=== PATIENT | female | born 1950 | race Caucasian/White ===

== ENCOUNTER → 2023-12-09 10:53 | Outpatient (REF) | payer MEDICARE, OTHER, SELFPAY | LOC: RAD 10:53 | PROVIDERS: ATTENDING PHYSICIAN Surgery Vascular Surgery; FAMILY PHYSICIAN Family Medicine | DX: I77.0 Arteriovenous fistula, acquired (principal) | CPT/HCPCS: 93990 ==

== ENCOUNTER 2023-12-14 13:39 | Emergency (ER) | payer MEDICARE, OTHER, SELFPAY ==
[2023-12-14 13:54] VITALS: BP 168/92
[2023-12-14 15:03] VITALS: BMI 31.3
--- NOTE | 2023-12-14 15:14 | ED.GENMED ---
History of Present Illness
General
Chief Complaint: Abdominal Pain
Source: patient and spouse
Exam Limitations: none
Time Seen by Provider: 12/14/23 14:38
Nursing documentation reviewed up to this point in time: agreed with
Travel History
Have you had any contact with someone who has COVID-19?: No
Do you have any symptoms of coronavirus? Fever > 100 degrees, chills, cough, shortness of breath, sore throat, loss of taste or smell, muscle aches, or headache?: No
History of Present Illness
History of Present Illness:
73-year-old female with past medical history of hypertension hyperlipidemia pacemaker, diabetes, CKD currently on dialysis end-stage renal disease, stroke presenting to the emergency department today with concerns of right-sided abdominal pain that
was abrupt in onset roughly 3 hours prior to arrival with associated nausea vomiting no diarrhea. Denies any known sick contacts.
Past History
Past History
ED Past Medical History: CAD, Hypercholesterolemia, IDDM and Other (Sciatica)
ED Past Surgical History: Cardiac and Orthopedic (Left hip fracture repair November 2019)
Social History
Tobacco: Non-smoker
Alcohol: None
Drug: None
Personal:
Living: with family
Employment: Retired
Family History
Family History: Other (Noncontributory)
Review of Systems
Review of Systems
Allergies reviewed?: Yes
All Other Systems: ROS reviewed and negative except as documented in HPI and ROS
Phy Exam
Physical Exam
Physical Exam:
GENERAL: Alert , in no apparent distress
EYE: pupils equal and reactive
NECK: Supple, no significant adenopathy.
ENT: o/p clr, mmm.
CARDIAC: Regular rate and rhythm .
LUNGS: Clear breath sounds bilaterally, no acute respiratory distress, no wheezes/rales/rhonchi
ABDOMEN: Diffuse mild abdominal discomfort
NEUROLOGICAL: Alert and oriented, no focal neuro deficits
SKIN: Warm and dry, skin intact.
MUSCULOSKELETAL: No edema, well perfused.
PSYCH: Normal and appropriate interaction.
Course
Orders/Labs/Results
Orders:
Orders
12/14/23 15:12
CT Abd/Pel (IV only)-DH only Urgent
Comment:
Reason For Exam: abd pain
HYDROmorphone [Dilaudid] 0.5 mg IV NOW STA
Ondansetron Injectable [Zofran] 4 mg IV NOW STA
12/14/23 15:13
Electrocardiogram (*1) Stat
Reason for Study: Abdominal Pain
EKG- Treatment ONCE
12/14/23 15:33
Complete Blood Count/With Diff Urgent
Comprehensive Metabolic Panel Urgent
Lactic Acid Urgent
Lipase Urgent
Urinalysis Reflex To Culture Urgent
Date Specimen was Collected: 12/14/23
Time Specimen was Collected: 15:27
Urine Microscopic Reflex Cult Urgent
Urine Culture Urgent
CHARLINE Source: U
Specimen Description:
Date Specimen was Collected: 12/14/23
Time Specimen was Collected: 15:27
12/14/23 17:09
Ondansetron Injectable [Zofran] 4 mg .ROUTE .STK-MED ONE
12/14/23 17:11
Ondansetron Injectable [Zofran] 4 mg IV NOW STA
12/14/23 18:26
HYDROmorphone [Dilaudid] 0.5 mg IV NOW STA
Abnormal Lab Results
12/14/23
15:33
RBC 3.85 L 10^6/uL
(4.20-5.40)
MCV 99.2 H fL
(81.0-99.0)
MCH 33.2 H pg
(27.0-31.0)
RDW 15.0 H %
(11.5-14.5)
MPV 10.7 H fL
(7.4-10.4)
Absolute Neuts (auto) 8.0 H 10^3/uL
(1.4-6.5)
Absolute Lymphs (auto) 0.9 L 10^3/uL
(1.2-3.4)
Neutrophils % 83.4 H %
(42.2-75.2)
Lymphocytes % 9.8 L %
(20.5-51.1)
BUN 49 H mg/dl
(7-17)
Creatinine 4.7 H* mg/dL
(0.6-1.0)
Glucose 227 H mg/dl
(70-99)
Ur Occult Blood Reflex Trace A
(Negative)
Leukocyte Esterase Rfl 1+ A
(Negative)
Urine Bacteria (Reflex) Few A
(Negative)
Urine Glucose 3+ A
(Negative)
Urine Albumin (Reflex) 2+ A
(Neg - Trace)
12/14/23 15:33
12/14/23 15:33
Vital Signs
Initial and Last Documented VS:
Initial Vital Signs
Temp Pulse Resp BP Pulse Ox
97.6 F 75 16 168/92 98
12/14/23 13:54 12/14/23 13:54 12/14/23 13:54 12/14/23 13:54 12/14/23 13:54
Last Documented Vital Signs
Temp Pulse Resp BP Pulse Ox
97.6 F 82 12 168/92 92
12/14/23 13:54 12/14/23 17:15 12/14/23 17:15 12/14/23 13:54 12/14/23 17:15
MDM/Problems Addressed
MDM/Problems Addressed:
73-year-old female presenting to the emergency department today with concerns of right-sided abdominal pain associated nausea vomiting for the past 3 hours or so. Here has diffuse mild abdominal tenderness. Plan for CT scan for further assessment.
Given medication for symptoms through the IV as well. Labs without emergent findings no white count creatinine elevated but at patient's baseline and consistent with end-stage renal disease urinalysis does not appear to be infected. CT scan
showing mild hydro Case was discussed with urology that feels this is unlikely be causing patient's acute symptoms. Patient was reassessed and cleared the symptoms are now continually improving has vomiting has been able to tolerate by mouth and
the pain is close to resolved. There does not appear to be any emergent findings at this point she does appear to be stable for discharge she was advised. Very strict return precautions.
*Critical Care Note
Total Time (30-74mins, 75-104mins- exclusive of procedures): Not Applicable
ED Attending Note
-
Portions of this chart may have been created with voice recognition software.� Occasional wrong word or��sound alike� substitutions may have occurred due to the inherent limitations of voice recognition software.
Discharge Plan
Departure
Patient Disposition: Home (Routine Discharge)
Date of Disposition: 12/14/23
Time of Disposition: 19:04
Patient with high blood pressure during this ER visit?: No
Condition: Good
Covid-19: Not Applicable
Discharge Problem:
Abdominal pain, Vomiting
Instructions: Nausea and Vomiting, Adult (DC), Abdominal Pain
Prescriptions:
New
ondansetron 4 mg tablet,disintegrating
4 mg PO Q8H PRN (Reason: nausea and vomiting) Qty: 10 0RF
dicyclomine 20 mg tablet
20 mg PO QID PRN (Reason: abdominal pain) Qty: 10 0RF
No Action
clopidogrel 75 MG tablet
75 mg PO DAILY
carvedilol [Coreg] 25 mg Tablet
25 mg PO BID
isosorbide mononitrate 30 mg Tablet Extended Release 24 Hr
30 mg PO HS
famotidine [Pepcid] 20 mg Tablet
20 mg PO DAILY PRN (Reason: gerd)
docusate sodium [Colace] 100 mg Capsule
100 mg PO DAILY PRN (Reason: constipation)
sennosides [senna] 8.6 mg tablet
8.6 mg PO DAILYPRN PRN (Reason: constipation)
rosuvastatin [Crestor] 40 mg tablet
40 mg PO HS
Levemir FlexPen 100 unit/mL (3 mL) Insulin Pen
14 unit SC HS
lidocaine-prilocaine 2.5-2.5 % Cream
1 applic TOPICAL MOWEFR
insulin aspart U-100 [Novolog FlexPen U-100 Insulin] 100 unit/mL (3 mL) Insulin Pen
0 sliding scale dose SC DIRECTED
Patient Comments:
12/14/2023, taken AC.
Rx Instructions:
12/14/2023, if BS 150-199 = 4 units; 200-249 = 6 units; 250-299 = 12 units; 300-349 = 16 units.
cholecalciferol (vitamin D3) 50 mcg (2,000 unit) Tablet
50 mcg PO DAILY
Dialyvite 800-Ultra D 0.8-2,000 mg-unit Tablet
1 tab PO HS
torsemide 20 mg tablet
20 mg PO BID
Referrals:
UNKNOWN - PT DOES,NOT KNOW [Family Provider] -
Activity Restrictions/Additional Instructions:
You came to the emergency department today with concerns of abdominal pain and nausea vomiting. Here you had a reassuring evaluation. Please go closely as an outpatient with your primary care doctor. Please take prescribed occasions symptoms.
Return to the emergency department for any worsening, new or concerning symptoms.
Interventions
Interventions:
*Risk Screen - Suicide Last Done: 12/14/23 13:54
*General Assessment Last Done: 12/14/23 13:54
*Neglect/Abuse Screening Last Done: 12/14/23 13:54
ED- Fall Risk Assessment Last Done: 12/14/23 15:03
*ED COVID-19 Vaccine History Last Done: 12/14/23 15:55
LN-Kxhnnv-Wirmvhdxyd Assessment Last Done: 12/14/23 15:55
[2023-12-14 15:41] LABS: Urine Albumin 2+ (Neg - Trace); Urine Bilirubin Negative (Negative); Urine Character Clear (Clear); Urine Color Straw; Urine Glucose 3+ (Negative); Urine Ketone Negative (Negative); Urine Leukocyte 1+ (Negative); Urine Nitrite Negative (Negative); Urine Occult Blood Trace (Negative); Urine Urobilinogen Negative (Neg - 1+)
[2023-12-14] MEDS: DILAUDID 0.5 MG IV (15:45)
[2023-12-14] MEDS: ZOFRAN 4 MG IV ×2 (15:45→17:11)
[2023-12-14 15:51] LABS: Urine Bacteria Few (Negative); Urine Squamous Cell >30 /LPF (Few)
[2023-12-14 15:52] LABS: Urine Red Blood Cell 0-2 /HPF (0-2)
[2023-12-14 15:54] LABS: % Basophils 0.4 % (0-2); % Immature Granulocytes 0.3 % (0-0.5); % Lymphocytes 9.8 % (20.5-51.1); % Monocytes 5.1 % (1.7-9.3); % Neutrophils 83.4 % (42.2-75.2); Absolute Eosinophils 0.1 10^3/uL (0-0.7); Absolute Lymphocytes 0.9 10^3/uL (1.2-3.4); Absolute Monocytes 0.5 10^3/uL (0.1-0.6); Hematocrit 38.2 % (37.0-47.0); Hemoglobin 12.8 g/dL (12.0-16.0); Mean Corp Hgb Conc. 33.5 g/dL (33.0-37.0); Mean Corpuscular Hgb 33.2 pg (27.0-31.0); Mean Corpuscular Volume 99.2 fL (81.0-99.0); Mean Platelet Volume 10.7 fL (7.4-10.4); Nucleated Red Blood Cells % 0 %; Platelet Count 156 10^3/uL (130-400); Red Blood Cell Count 3.85 10^6/uL (4.20-5.40); White Blood Cell Count 9.6 10^3/uL (4.8-10.8)
[2023-12-14 16:08] LABS: Lactic Acid 1.6 mmol/L (0.7-2.0)
[2023-12-14 16:11] LABS: ALT (SGPT) 17 U/L (0-35); AST (SGOT) 25 U/L (14-36); Albumin 4.5 g/dl (3.5-5.0); Alkaline Phosphatase 80 U/L (38-126); Blood Urea Nitrogen 49 mg/dl (7-17); Calcium 9.5 mg/dl (8.4-10.2); Carbon Dioxide 30 mmol/L (22-30); Chloride 102 mmol/L (98-107); Estimated Creatinine Clearance 10 ml/min; Glucose 227 mg/dl (70-99); Lipase 222 U/L (23-300); Sodium 141 mmol/L (135-145); Total Bilirubin 0.5 mg/dl (0.2-1.3); Total Protein 7.9 g/dl (6.3-8.2)
--- NOTE | 2023-12-14 16:39 | PHANOTE ---
12/14/2023, med rec tech, spoke to spouse to obtain pt.'s med. history; per spouse, pt. threw up this morning and is unsure if their morning meds. stayed down.
[2023-12-14] MEDS: BENTYL 20 MG IM (19:19)
== END 2023-12-14 19:40 | disposition home or self-care (01) ==
LOC: EMR 13:39
PROVIDERS: Physician Assistant; EMERGENCY PHYSICIAN Emergency Medicine
DX: R10.31 Right lower quadrant pain (principal); R11.2 Nausea with vomiting, unspecified; E78.00 Pure hypercholesterolemia, unspecified; E11.22 Type 2 diabetes mellitus with diabetic chronic kidney disease; I12.0 Hypertensive chronic kidney disease with stage 5 chronic kidney disease or end stage renal disease; N18.6 End stage renal disease; I25.10 Atherosclerotic heart disease of native coronary artery without angina pectoris; G47.30 Sleep apnea, unspecified; K21.9 Gastro-esophageal reflux disease without esophagitis; K44.9 Diaphragmatic hernia without obstruction or gangrene; M19.90 Unspecified osteoarthritis, unspecified site; D50.9 Iron deficiency anemia, unspecified; G43.909 Migraine, unspecified, not intractable, without status migrainosus; I25.2 Old myocardial infarction; Z79.4 Long term (current) use of insulin; Z95.0 Presence of cardiac pacemaker; Z95.5 Presence of coronary angioplasty implant and graft; Z86.73 Personal history of transient ischemic attack (TIA), and cerebral infarction without residual deficits; Z88.5 Allergy status to narcotic agent; Z88.0 Allergy status to penicillin; Z88.2 Allergy status to sulfonamides; Z88.8 Allergy status to other drugs, medicaments and biological substances; Z91.018 Allergy to other foods; Z91.048 Other nonmedicinal substance allergy status
CPT/HCPCS: 99285; 96375; 96372; 96374; 96376; 74177; 80053; 81003; 81015; 83605; 83690; 85025; 87086; 93005; Q9967